=== PATIENT | male | born 1970 ===

== ENCOUNTER 2024-06-08 08:48 | Outpatient (CLI) | payer OTHER, SELFPAY | END 2024-06-08 08:49 | disposition home or self-care (01) | PROVIDERS: Visit Provider Family Medicine | DX: Z01.818 Encounter for other preprocedural examination (principal); I10 Essential (primary) hypertension; Z12.5 Encounter for screening for malignant neoplasm of prostate | CPT/HCPCS: 80053; G0103 ==